=== PATIENT | male | born 1985 | race Two or more races ===

== ENCOUNTER 2016-07-26 13:10 | Emergency (ER) | payer BC ==
[~2016-07-26] VITALS: Ht 175.3 cm; Wt 72.6 kg
[2016-07-26 14:38] VITALS: BP 140/77
[2016-07-26] MEDS ORDERED: HYDROcodone-ACET 10/325MG TAB PO ONE (15:15)
== END 2016-07-26 15:19 | disposition home or self-care (01) ==
LOC: ER 13:15
DX: S93.401A Sprain of unspecified ligament of right ankle, initial encounter (principal); W01.0XXA Fall on same level from slipping, tripping and stumbling without subsequent striking against object, initial encounter; Y93.89 Activity, other specified; Y99.8 Other external cause status; Y92.89 Other specified places as the place of occurrence of the external cause
CPT/HCPCS: 73590; 73610